=== PATIENT | male | born 1990 | race Caucasian/White ===

== ENCOUNTER 2017-08-31 08:12 | Emergency (ER) | payer SELFPAY ==
[~2017-08-31] VITALS: Ht 185.4 cm; Wt 107.0 kg
[2017-08-31 08:13] VITALS: BP 139/71; PULSE 120; RESP 16; TEMP 100.7; O2SAT 98
[2017-08-31 08:19] VITALS: BP 139/71; PULSE 120; RESP 18; TEMP 100.7; O2SAT 98
--- NOTE | 2017-08-31 08:35 | PD ---
HPI Chief Complaint: Fever Time Seen by Provider: 08:32 Travel History International Travel<30 days: No Contact w/Intl Traveler<30days: No Traveled to known affect area: No History of Present Illness HPI This 27-year-old male says he had a sore throat and fever for 4 days. As he has trouble swallowing in the throat hurts quite a bit. He has been taking Tylenol and Motrin without any relief. Is also having some myalgias and arthralgias. He has not been coughing and does not feel like he is congested. He is generally healthy has not had any surgery. [facility] Past Medical History Medical History: Denies Significant Hx Diminished Hearing: No Tetanus Vaccination: < 5 Years Influenza Vaccination: No Past Surgical History Surgical History: No Previous Surgery Social History Alcohol Use: Yes (WEEKENDS) Tobacco Use: No Substance Use: No Allergies-Medications (Allergen,Severity, Reaction): Coded Allergies: No Known Allergies (Unverified , 08/31/17) Reported Meds & Prescriptions Reported Meds & Active Scripts Active No Active Prescriptions or Reported Medications Review of Systems Except as stated in HPI: all other systems reviewed are Neg General / Constitutional: Positive: Fever, Chills Eyes: No: Diploplia, Blurred Vision HENT: Positive: Sore Throat, No: Headaches Cardiovascular: No: Chest Pain or Discomfort, Palpitations Respiratory: No: Cough, Shortness of Breath Gastrointestinal: No: Vomiting, Diarrhea Musculoskeletal: Positive: Myalgias, Arthralgias Skin: No Rash Psychiatric: Positive: Anxiety Physical Exam Narrative GENERAL: Well-developed male SKIN: Focused skin assessment warm/dry. HEAD: Atraumatic. Normocephalic. EYES: Pupils equal and round. No scleral icterus. No injection or drainage. ENT: No nasal bleeding or discharge. Mucous membranes pink and moist. Posterior pharynx erythematous with no exudate NECK: Trachea midline. No JVD. CARDIOVASCULAR: Regular rate and rhythm. No murmur appreciated. RESPIRATORY: No accessory muscle use. Clear to auscultation. Breath sounds equal bilaterally. GASTROINTESTINAL: Abdomen soft, non-tender, nondistended. Hepatic and splenic margins not palpable. MUSCULOSKELETAL: No obvious deformities. No clubbing. No cyanosis. No edema. NEUROLOGICAL: Awake and alert. No obvious cranial nerve deficits. Motor grossly within normal limits. Normal speech. PSYCHIATRIC: Appropriate mood and affect; insight and judgment normal. Data Data Last Documented VS Vital Signs Date Time Temp Pulse Resp B/P (MAP) Pulse Ox O2 Delivery O2 Flow Rate FiO2 08/31/17 09:40 101.6 115 18 148/72 (97) 100 Room Air Orders Orders Complete Blood Count With Diff (08/31/17 08:32) Group A Rapid Strep Screen (08/31/17 08:32) Monoscreen (08/31/17 08:32) Influenzae A/B Antigen (08/31/17 08:32) Ibuprofen (Motrin) (08/31/17 08:45) Strep Culture (Group A) (08/31/17 09:00) Acetaminophen (Tylenol) (08/31/17 09:45) Labs Laboratory Tests Test 08/31/17 09:00 White Blood Count 6.9 TH/MM3 Red Blood Count 4.72 MIL/MM3 Hemoglobin 13.5 GM/DL Hematocrit 40.1 % Mean Corpuscular Volume 84.9 FL Mean Corpuscular Hemoglobin 28.5 PG Mean Corpuscular Hemoglobin Concent 33.6 % Red Cell Distribution Width 12.2 % Platelet Count 138 TH/MM3 Mean Platelet Volume 9.5 FL Neutrophils (%) (Auto) 72.5 % Lymphocytes (%) (Auto) 12.3 % Monocytes (%) (Auto) 12.0 % Eosinophils (%) (Auto) 2.8 % Basophils (%) (Auto) 0.4 % Neutrophils # (Auto) 5.1 TH/MM3 Lymphocytes # (Auto) 0.8 TH/MM3 Monocytes # (Auto) 0.8 TH/MM3 Eosinophils # (Auto) 0.2 TH/MM3 Basophils # (Auto) 0.0 TH/MM3 CBC Comment DIFF FINAL Differential Comment MDM Medical Decision Making Medical Screen Exam Complete: Yes Emergency Medical Condition: Yes Medical Record Reviewed: Yes Differential Diagnosis Differential includes strep pharyngitis, influenza, mono, viral pharyngitis Narrative Course Test for influenza is negative. Strep test is negative. [place] test is pending. This appears to be viral pharyngitis and I will recommend symptomatic treatment Diagnosis Primary Impression: Viral pharyngitis Departure Forms: Tests/Procedures, Work Release Enter return to work date: Sep 03, 2017 Scripts No Active Prescriptions or Reported Meds Disposition: 01 DISCHARGE HOME Condition: Jasbir Iqbal MD Aug 31, 2017 08:35
[2017-08-31] MEDS ORDERED: IBUPROFEN 600 MG TAB PO ONE (08:45)
[2017-08-31 09:11] LABS: AUTOMATED NEUTROPHIL # 5.1 TH/MM3 (1.8-7.7); BASOPHIL % 0.4 % (0.0-2.0); EOSINOPHIL # 0.2 TH/MM3 (0-0.4); EOSINOPHIL % 2.8 % (0.0-4.0); HEMATOCRIT 40.1 % (39.0-51.0); HEMOGLOBIN 13.5 GM/DL (13.0-17.0); LYMPH % 12.3 % (9.0-44.0); LYMPHOCYTE # 0.8 TH/MM3 (1.0-4.8); MEAN CELL VOLUME 84.9 FL (80.0-100.0); MEAN CORPUSCULAR HEMOGLOBIN 28.5 PG (27.0-34.0); MEAN CORPUSCULAR HGB CONC 33.6 % (32.0-36.0); MEAN PLATELET VOLUME 9.5 FL (7.0-11.0); MONOCYTE # 0.8 TH/MM3 (0-0.9); NEUT % 72.5 % (16.0-70.0); PLATELET COUNT 138 TH/MM3 (150-450); RED BLOOD COUNT 4.72 MIL/MM3 (4.50-5.90); RED CELL DISTRIBUTION WIDTH 12.2 % (11.6-17.2); WHITE BLOOD COUNT 6.9 TH/MM3 (4.0-11.0)
[2017-08-31 09:40] VITALS: BP 148/72; PULSE 115; RESP 18; TEMP 101.6; O2SAT 100
[2017-08-31] MEDS ORDERED: ACETAMINOPHEN 500 MG CPLT PO ONE (09:45)
[2017-08-31 10:59] LABS: MONOSCREEN NEG (NEG)
== END 2017-08-31 09:52 | disposition home or self-care (01) ==
LOC: PHED 08:12
DX: J02.8 Acute pharyngitis due to other specified organisms (principal); B97.89 Other viral agents as the cause of diseases classified elsewhere
CPT/HCPCS: 85025; 86308; 87081; 87804; 87880; 99283